=== PATIENT | male | born 1980 | race Caucasian/White ===

== ENCOUNTER 2018-01-16 10:57 | Emergency (ER) | payer MEDICAID, OTHER ==
[~2018-01-16] VITALS: Ht 177.8 cm; Wt 95.5 kg
[~2018-01-16 10:57] MED LIST: PERCT10 PO
[2018-01-16] MEDS ORDERED: MORPHINE SULFATE 4 MG/ML SYRINGE IM ONE (11:30)
[2018-01-16] MEDS ORDERED: KETOROLAC TROMETHAMINE 30 MG/ML VIAL IM ONE (11:30)
[2018-01-16 12:40] VITALS: BP 117/64
== END 2018-01-16 12:51 | disposition home or self-care (01) ==
LOC: EMS 11:07
DX: S39.012A Strain of muscle, fascia and tendon of lower back, initial encounter (principal); M51.36 Other intervertebral disc degeneration, lumbar region; M79.606 Pain in leg, unspecified; X58.XXXA Exposure to other specified factors, initial encounter; Y93.89 Activity, other specified; Y92.89 Other specified places as the place of occurrence of the external cause; Y99.8 Other external cause status
CPT/HCPCS: 72100; 96372; 99284; J1885; J2270

== ENCOUNTER 2018-01-31 19:28 | Emergency (ER) | payer OTHER ==
[~2018-01-31] VITALS: Ht 180.3 cm; Wt 104.5 kg
[2018-01-31] MEDS ORDERED: BUPIVACAINE HCL/PF 0.25% 10 ML VIAL INJ ONE (21:15)
[2018-01-31] MEDS ORDERED: POVIDONE-IODINE 10% 15 ML SOLUTION UD TP ONE (21:15)
[2018-01-31 21:45] VITALS: BP 125/80
[2018-01-31] MEDS ORDERED: BACITRACIN 0.9 GM PACKET OINTMENT TP ONE (22:00)
[2018-01-31] MEDS ORDERED: IBUPROFEN 800 MG TABLET PO ONE (22:00)
== END 2018-01-31 22:00 | disposition home or self-care (01) ==
LOC: EMS 19:28
DX: N61.1 Abscess of the breast and nipple (principal); F12.90 Cannabis use, unspecified, uncomplicated; Z87.891 Personal history of nicotine dependence
CPT/HCPCS: 10060; 99283; J3490; 99284

== ENCOUNTER 2018-02-04 08:40 | Emergency (ER) | payer OTHER ==
[~2018-02-04] VITALS: Ht 180.3 cm; Wt 104.5 kg
[2018-02-04 08:49] VITALS: BP 137/85
[2018-02-04] MEDS ORDERED: HYDR-309 PO (08:55)
[2018-02-04] MEDS ORDERED: CEPH500 PO (08:55)
== END 2018-02-04 10:06 | disposition left against medical advice (07) ==
LOC: EMS 08:41
DX: Z48.00 Encounter for change or removal of nonsurgical wound dressing (principal); Z53.21 Procedure and treatment not carried out due to patient leaving prior to being seen by health care provider

== ENCOUNTER 2018-11-28 16:45 | Emergency (ER) | payer OTHER ==
[~2018-11-28] VITALS: Ht 180.3 cm; Wt 111.4 kg
[~2018-11-28 16:45] MED LIST changes: +CEPH500 PO; +HYDR-309 PO; -PERCT10 PO
[2018-11-28] MEDS ORDERED: IBUPROFEN 600 MG TABLET PO ONE (17:45)
[2018-11-28] MEDS ORDERED: CefTRIAXone SODIUM 1 GM/VIAL IM ONE (17:45)
[2018-11-28] MEDS ORDERED: CEPHALEXIN MONOHYDRATE 500 MG CAPSULE PO ONE (17:45)
[2018-11-28] MEDS ORDERED: LIDOCAINE/PF 1% 2 ML VIAL IM ONE (17:45)
[2018-11-28] MEDS ORDERED: SULFAMETHOX/TRIMETH DS 800-160 MG/TABLET PO ONE (17:45)
[2018-11-28] MEDS ORDERED: LIDOCAINE 1% 10 ML VIAL INJ ONE (17:45)
[2018-11-28 17:57] LABS: BASOPHILS % (AUTO) 0.6 % (0.0-2.0); EOSINOPHILS % (AUTO) 1.3 % (1.0-6.0); HEMATOCRIT 43.5 % (41-53); HEMOGLOBIN 14.9 g/dL (13.5-17.5); LYMPHOCYTES # (AUTO) 2.1 K/uL (1.0-4.8); LYMPHOCYTES % (AUTO) 25.6 % (22.0-44.0); MEAN CORPUSCULAR HEMOGLOBIN 31.3 pg (26.0-34.0); MEAN CORPUSCULAR HGB CONC 34.2 G/dL (31.0-37.0); MEAN CORPUSCULAR VOLUME 92 fL (80-100); MONOCYTES # (AUTO) 0.6 K/uL (0.1-1.0); MONOCYTES % (AUTO) 7.9 % (2.0-9.0); NEUTROPHILS # (AUTO) 5.2 K/uL (1.8-7.7); NEUTROPHILS % (AUTO) 64.6 % (40.0-70.0); PLATELET COUNT (AUTO) 214 K/uL (150-450); RED BLOOD CELL COUNT(AUTO) 4.75 MIL/uL (4.50-5.90); RED CELL DISTRIBUTION WIDTH 12.7 % (11.5-14.5)
[2018-11-28 18:32] VITALS: BP 135/79
== END 2018-11-28 18:59 | disposition home or self-care (01) ==
LOC: EMS 16:45
DX: L02.415 Cutaneous abscess of right lower limb (principal); L03.115 Cellulitis of right lower limb; R11.0 Nausea; F12.90 Cannabis use, unspecified, uncomplicated; Z87.891 Personal history of nicotine dependence
CPT/HCPCS: 10060; 36415; 85025; 96372; 99283; J0696; J3490 ×2

== ENCOUNTER 2019-02-13 18:38 | Emergency (ER) | payer OTHER ==
[~2019-02-13] VITALS: Ht 180.3 cm; Wt 111.4 kg
[2019-02-13 19:40] VITALS: BP 136/88
== END 2019-02-13 19:45 | disposition left against medical advice (07) ==
LOC: EMS 18:38
DX: L02.612 Cutaneous abscess of left foot (principal); F17.210 Nicotine dependence, cigarettes, uncomplicated; F12.90 Cannabis use, unspecified, uncomplicated; Z53.21 Procedure and treatment not carried out due to patient leaving prior to being seen by health care provider

== ENCOUNTER 2020-03-02 07:56 | Emergency (ER) | payer OTHER ==
[~2020-03-02] VITALS: Ht 177.8 cm; Wt 84.1 kg
[2020-03-02 07:58] VITALS: BP 124/71
== END 2020-03-02 08:29 | disposition home or self-care (01) ==
LOC: EMS 07:57
DX: S46.001A Unspecified injury of muscle(s) and tendon(s) of the rotator cuff of right shoulder, initial encounter (principal); F12.90 Cannabis use, unspecified, uncomplicated; Z87.891 Personal history of nicotine dependence; X50.0XXA Overexertion from strenuous movement or load, initial encounter; Y93.89 Activity, other specified; Y92.89 Other specified places as the place of occurrence of the external cause; Y99.8 Other external cause status
CPT/HCPCS: Z7502